=== PATIENT | female | born 1950 | race Hispanic/Latino ===

== ENCOUNTER → 2023-04-21 | Outpatient (CLI) | payer OTHER | END | disposition home or self-care (01) | LOC: RAH 13:08 | PROVIDERS: ATTEND Internal Medicine | DX: Z78.0 Asymptomatic menopausal state (principal); M85.88 Other specified disorders of bone density and structure, other site | CPT/HCPCS: 77080 ==

== ENCOUNTER → 2023-07-26 | Outpatient (CLI) | payer OTHER | END | disposition home or self-care (01) | LOC: RAH 10:57 | PROVIDERS: ATTEND Physical Medicine & Rehabilitation | DX: M54.12 Radiculopathy, cervical region (principal); M48.02 Spinal stenosis, cervical region | CPT/HCPCS: 72141 ==

== ENCOUNTER → 2023-08-16 | Outpatient (CLI) | payer OTHER | END | disposition home or self-care (01) | LOC: RAH 10:00 | PROVIDERS: ATTEND Internal Medicine | DX: I65.23 Occlusion and stenosis of bilateral carotid arteries (principal); R42 Dizziness and giddiness | CPT/HCPCS: 93880 ==

== ENCOUNTER → 2024-11-08 | Outpatient (CLI) | payer OTHER ==
--- NOTE | 2024-11-09 05:54 | HMCIMG ---
EXAM: MR Right Knee without Intravenous Contrast. CLINICAL HISTORY: Pain. TECHNIQUE: Magnetic resonance images of the right knee in multiple planes. CONTRAST: None. COMPARISON: None. FINDINGS: Menisci: Horizontal tear of the body and vertical tear of the posterior horn of the medial meniscus. Intact lateral meniscus. Cruciate Ligaments: The anterior and posterior cruciate ligaments are intact. Collateral Ligaments: The medial collateral ligament and the lateral collateral ligament complex are intact. Patellar Retinaculum: The medial and lateral patellar retinaculum are unremarkable. Patellar/Quadriceps Tendon: The patellar tendon and the quadriceps tendon are unremarkable. Bone Marrow Signal: No acute fracture or AVN. Cartilage/Articular Surfaces: Moderate grade articular cartilage loss patellofemoral joint. Mild grade articular cartilage loss at the medial femorotibial joint with subchondral marrow reaction. Mild joint effusion. Severe grade loss of bulk and severe grade fatty atrophy of the visualized muscles around the knee joint. IMPRESSION: 1. Moderate osteoarthritis evident by moderate grade articular cartilage loss at the patellofemoral joint and mild grade articular cartilage loss at the medial femorotibial joint with subchondral marrow reaction. 2. Horizontal tear of the body and vertical tear of the posterior horn of the medial meniscus. 3. Mild joint effusion. 4. Severe grade loss of bulk and severe grade fatty atrophy of the visualized muscles around the knee joint. /Palmer
== END | disposition home or self-care (01) ==
LOC: RAH 08:00
PROVIDERS: ATTEND Physical Medicine & Rehabilitation
DX: S83.241A Other tear of medial meniscus, current injury, right knee, initial encounter (principal); M25.561 Pain in right knee; M17.11 Unilateral primary osteoarthritis, right knee; M25.461 Effusion, right knee; X58.XXXA Exposure to other specified factors, initial encounter; Y93.89 Activity, other specified; Y92.89 Other specified places as the place of occurrence of the external cause; Y99.8 Other external cause status
CPT/HCPCS: 73721

== ENCOUNTER → 2024-12-28 | Outpatient (CLI) | payer OTHER ==
--- NOTE | 2024-12-28 20:19 | HMCIMG ---
EXAM: MR Cervical Spine Without Intravenous Contrast. CLINICAL HISTORY: Cervical spinal stenosis. TECHNIQUE: Magnetic resonance images of the cervical spine in multiple planes. CONTRAST: None. COMPARISON: MRI dated 08/15/24. FINDINGS: The imaged posterior fossa is unremarkable. The craniocervical junction is intact. No acute fracture. Mild levoscoliosis. Straightening of the cervical lordosis, possibly paraspinal spasm versus degenerative change. Multilevel spondylosis is evident by marginal osteophytes and facet joint arthropathy. Multilevel disc desiccation and degenerative disc height reduction noted, more pronounced at the C4-C5 level. Normal vertebral body heights. Modic type II changes in the contiguous endplates at the C4-C5 level. No abnormal signal involves the cord. No extra-axial masses. The surrounding soft tissues are unremarkable. Level by level disease is present as follows: C1-C2: Mild osteoarthritis. C2-C3: 2 mm disc osteophyte complex bulge and facet joint arthropathy causing mild indentation on the anterior thecal sac and moderate left foraminal narrowing. No lateral recess stenosis. C3-C4: 3 mm disc osteophyte complex bulge, ligamentum flavum thickening, and facet joint arthropathy causing mild canal narrowing with indentation on the cord and moderate right foraminal narrowing. No lateral recess stenosis. C4-C5: 3 mm disc osteophyte complex bulge, ligamentum flavum thickening, and facet joint arthropathy causing mild canal narrowing with indentation on the cord and moderate to severe right foraminal narrowing. No lateral recess stenosis. C5-C6: 3 mm disc osteophyte complex bulge and facet joint arthropathy causing mild canal narrowing and moderate to severe bilateral foraminal narrowing. No lateral recess stenosis. C6-C7: 3 mm disc osteophyte complex bulge causing mild indentation on the anterior thecal sac. No neural foraminal or lateral recess stenosis. C7-T1: 3 mm left predominant disc osteophyte complex bulge causing mild indentation on the anterior thecal sac and moderate to severe left lateral recess narrowing. No foraminal stenosis. T1-T2: 4 mm disc osteophyte compress bulge and facet joint arthropathy causing mild indentation on the anterior thecal sac and mild bilateral foraminal narrowing. IMPRESSION: Mild levoscoliosis. Straightening of the cervical lordosis, possibly paraspinal spasm versus degenerative change. Moderate to severe multilevel spondylosis and degenerative disc changes. Modic type II changes in the contiguous endplates at the C4-C5 level. Mild indentation on the anterior thecal sac and moderate left foraminal narrowing at the C2-C3 level. Mild canal narrowing with indentation on the cord and moderate right foraminal narrowing at the C3-C4 level. Mild canal narrowing with indentation on the cord and moderate to severe right foraminal narrowing at the C4-C5 level. Mild canal narrowing and moderate to severe bilateral foraminal narrowing the at C5-C6 level. Mild indentation on the anterior thecal sac and moderate to severe left lateral recess narrowing at the C7-T1 level. No significant interval changes. /Dutton
== END | disposition home or self-care (01) ==
LOC: RAH 08:24
PROVIDERS: ATTEND Physical Medicine & Rehabilitation
DX: M47.812 Spondylosis without myelopathy or radiculopathy, cervical region (principal); M48.02 Spinal stenosis, cervical region; M41.82 Other forms of scoliosis, cervical region; M48.03 Spinal stenosis, cervicothoracic region; M25.78 Osteophyte, vertebrae; M50.31 Other cervical disc degeneration, high cervical region; M50.321 Other cervical disc degeneration at C4-C5 level; M50.322 Other cervical disc degeneration at C5-C6 level; M50.323 Other cervical disc degeneration at C6-C7 level; M50.33 Other cervical disc degeneration, cervicothoracic region; M51.34 Other intervertebral disc degeneration, thoracic region; M48.04 Spinal stenosis, thoracic region
CPT/HCPCS: 72141